=== PATIENT | female | born 1980 | race Caucasian/White ===

== ENCOUNTER 2017-04-04 13:06 | Emergency (ER) | payer SELFPAY | END 2017-04-04 13:59 | disposition left against medical advice (07) | LOC: ED 13:53 | DX: R42 Dizziness and giddiness (principal); R11.0 Nausea; Z53.21 Procedure and treatment not carried out due to patient leaving prior to being seen by health care provider ==

== ENCOUNTER 2017-04-06 16:21 | Emergency (ER) | payer SELFPAY ==
[~2017-04-06] VITALS: Ht 157.5 cm; Wt 53.3 kg
[2017-04-06] MEDS ORDERED: SODIUM CHLORIDE 0.9% 1,000 ML IV ONE (16:33)
[2017-04-06] MEDS ORDERED: ACETAMINOPHEN 325 MG TABLET ONE (16:51)
[2017-04-06] MEDS ORDERED: ACETAMINOPHEN 325 MG TABLET PO ONE (17:00)
[2017-04-06] MEDS ORDERED: SODIUM CHLORIDE 0.9% 1,000ML IVBOLUS ONE ×2 (17:00→18:00)
[2017-04-06 17:02] LABS: HEMATOCRIT 41.6 % (34.6-47.8); WHITE BLOOD COUNT 8.2 x10^3/uL (3.4-10)
[2017-04-06 17:07] LABS: BLOOD UREA NITROGEN 11 mg/dL (7-18)
[2017-04-06] MEDS ORDERED: LORazepam 2 MG/ML, 1ML ONE (17:51)
[2017-04-06] MEDS ORDERED: SODIUM CHLORIDE FLUSH 10ML SYR IVF ONE (18:00)
[2017-04-06] MEDS ORDERED: LORazepam 2 MG/ML, 1ML IVPush ONE (18:00)
[2017-04-06 20:28] VITALS: BP 117/80
== END 2017-04-06 20:33 | disposition home or self-care (01) ==
LOC: ED 18:17
DX: S09.90XA Unspecified injury of head, initial encounter (principal); R11.10 Vomiting, unspecified; E86.0 Dehydration; N39.0 Urinary tract infection, site not specified; I10 Essential (primary) hypertension; Y04.2XXA Assault by strike against or bumped into by another person, initial encounter
CPT/HCPCS: 36415; 70450; 71020; 72125; 80048; 81001; 82040; 84703; 85025; 87077; 87086; 96361; 96374; 99285; J2060; J7030; 87147; 87186

== ENCOUNTER 2017-07-22 | Emergency (ER) | payer OTHER ==
[~2017-07-22] VITALS: Ht 157.5 cm; Wt 54.5 kg
[2017-07-22 00:12] VITALS: BP 138/83
[2017-07-22] MEDS ORDERED: ONDANSETRON 2MG/ML, 2ML IVPush ONE (00:30)
[2017-07-22] MEDS ORDERED: SODIUM CHLORIDE FLUSH 10ML SYR IVF ONE (00:30)
[2017-07-22] MEDS ORDERED: SODIUM CHLORIDE 0.9% 1,000ML IVBOLUS ONE (00:30)
[2017-07-22 00:34] LABS: BASOPHILS # (AUTO) 0.05 x10^3/uL (0-0.1); BASOPHILS % (AUTO) 1 % (0-1); EOSINOPHILS # (AUTO) 0.05 x10^3/uL (0-0.4); EOSINOPHILS % (AUTO) 1 % (1-7); LYMPHOCYTES # (AUTO) 3.42 x10^3/uL (1-3.4); LYMPHOCYTES % (AUTO) 54 % (22-44); MD NO; MEAN CORPUSCULAR HEMOGLOBIN 33.6 pg (27.0-34.8); MEAN CORPUSCULAR HGB CONC 33.6 g/dL (32.4-35.8); MEAN CORPUSCULAR VOLUME 100.2 fL (80-100); MEAN PLATELET VOLUME 6.9 fL (7.4-10.4); MONOCYTES # (AUTO) 0.57 x10^3/uL (0.2-0.8); MONOCYTES % (AUTO) 9 % (2-9); NEUTROPHILS # (AUTO) 2.31 x10^3/uL (1.8-6.8); NEUTROPHILS % (AUTO) 36 % (42-75); PLATELET COUNT 254 x10^3/uL (130-400); RED BLOOD COUNT 4.33 x10^6/uL (3.82-5.3); RED CELL DISTRIBUTION WIDTH 13.3 % (9.6-15.2)
[2017-07-22 00:45] LABS: ALANINE AMINOTRANSFERASE 72 U/L (12-78); ANION GAP 7 mmol/L (5-15); CALCIUM 8.5 mg/dL (8.5-10.1); CHLORIDE 107 mmol/L (98-107); CREATININE 0.55 mg/dL (0.55-1.02)
[2017-07-22 00:50] LABS: ALKALINE PHOSPHATASE 68 U/L (45-117); BILIRUBIN,TOTAL 0.2 mg/dL (0.2-1.0); TOTAL PROTEIN 8.4 g/dL (6.4-8.2); TROPONIN I < 0.015 ng/mL (0.000-0.045)
== END 2017-07-22 04:09 ==
LOC: ED 04:03
DX: R07.9 Chest pain, unspecified (principal); R10.84 Generalized abdominal pain; R05 Cough
CPT/HCPCS: 36415; 71046; 80053; 80307; 83690; 84484; 84703; 85025; 93005; 99285; G0479

== ENCOUNTER 2018-10-31 15:15 | Emergency (ER) | payer MEDICAID ==
[~2018-10-31] VITALS: Ht 157.5 cm; Wt 55.4 kg
--- NOTE | 2018-10-31 15:38 | NUR ---
BREAK RN: CONTACT WITH PT, 37 YR OLD FEMALE HERE WITH C/O "IT STARTED WITH A SPIDER BITE, I GOT ABX FOR IT AND THEN I GOT ANOTHER SPIDER BITE, GOT MORE ABX, DOXYCYCLINE, NOW MY HANDS ARE ALL RED, MY SKIN FEELS ALL WEIRD AND TINGLY." SEEN AT [facility] 2 WEEKS AGO FOR LEFT CALF SPIDER BITE, (RESOLVED) AFTER FINISHING 1ST ROUND OF ABX DEVELOPED A RASH TO LEFT CALF. 1 WEEK AGO DEVELOPED A SPIDER BITE TO RIGHT CALF, SEEN AT [facility]. BRIGIDA HANDS RED. RIGHT HAND SLIGHTLY SWOLLEN.
--- NOTE | 2018-10-31 15:44 | NUR ---
TERRENCE ERWIN AT BEDSIDE TO EVLUCY PT.
[2018-10-31 16:04] LABS: BASOPHILS # (AUTO) 0.03 x10^3/uL (0-0.1); BASOPHILS % (AUTO) 0 % (0-1); EOSINOPHILS # (AUTO) 0.07 x10^3/uL (0-0.4); EOSINOPHILS % (AUTO) 1 % (1-7); LYMPHOCYTES # (AUTO) 2.17 x10^3/uL (1-3.4); LYMPHOCYTES % (AUTO) 32 % (22-44); MD NO; MEAN CORPUSCULAR HEMOGLOBIN 33.9 pg (27.0-34.8); MEAN CORPUSCULAR HGB CONC 34.4 g/dL (32.4-35.8); MEAN CORPUSCULAR VOLUME 98.5 fL (80-100); MEAN PLATELET VOLUME 7.4 fL (7.4-10.4); MONOCYTES # (AUTO) 0.47 x10^3/uL (0.2-0.8); MONOCYTES % (AUTO) 7 % (2-9); NEUTROPHILS # (AUTO) 4.12 x10^3/uL (1.8-6.8); NEUTROPHILS % (AUTO) 60 % (42-75); PLATELET COUNT 254 x10^3/uL (130-400); RED BLOOD COUNT 4.09 x10^6/uL (3.82-5.3); RED CELL DISTRIBUTION WIDTH 12.6 % (9.6-15.2)
[2018-10-31 16:11] LABS: INTERNATIONAL NORMALIZED RATIO 0.97 (0.93-1.1); PROTHROMBIN TIME 10.2 Seconds (9.6-11.5)
[2018-10-31 16:13] LABS: ALBUMIN 3.9 g/dL (3.4-5.0); ANION GAP 6 mmol/L (5-15); CALCIUM 8.8 mg/dL (8.5-10.1); CHLORIDE 107 mmol/L (98-107)
--- NOTE | 2018-10-31 16:13 | NUR ---
REPORT TO TORRIE DIAZ.
[2018-10-31 16:17] LABS: ALANINE AMINOTRANSFERASE 53 U/L (12-78); ALKALINE PHOSPHATASE 80 U/L (45-117); BILIRUBIN,TOTAL 0.2 mg/dL (0.2-1.0); CREATININE 0.62 mg/dL (0.55-1.02); TOTAL PROTEIN 7.6 g/dL (6.4-8.2)
--- NOTE | 2018-10-31 16:34 | NUR ---
RYAN HOPE AT BEDSIDE FOR EVAL AT THIS TIME. PT CURRENTLY RESTING ON GURNEY. NAD NOTED. SKIN WARM AND DRY. RESP EVEN AND UNLABORED. CALL LIGHT WITHIN REACH. WILL CONT TO MONITOR PT.
[2018-10-31] MEDS ORDERED: FAMOTIDINE 20 MG TABLET ONE (16:59)
[2018-10-31] MEDS ORDERED: DIPHENHYDRAMINE 25 MG CAPSULE ONE (17:00)
[2018-10-31] MEDS ORDERED: DIPHENHYDRAMINE 25 MG CAPSULE PO ONE (17:00)
[2018-10-31] MEDS ORDERED: FAMOTIDINE 20 MG TABLET PO ONE (17:00)
[2018-10-31 17:03] VITALS: BP 114/73
== END 2018-10-31 17:19 | disposition home or self-care (01) ==
LOC: ED 16:30
DX: L55.0 Sunburn of first degree (principal); I10 Essential (primary) hypertension; Z88.1 Allergy status to other antibiotic agents
CPT/HCPCS: 36415; 80053; 85025; 85610; 99284; J7512; Q0163

== ENCOUNTER 2018-12-18 17:48 | Emergency (ER) | payer MEDICAID, OTHER ==
[~2018-12-18] VITALS: Ht 157.5 cm; Wt 54.2 kg
[2018-12-18 18:00] VITALS: BP 129/86
== END 2018-12-18 19:03 | disposition home or self-care (01) ==
LOC: ED 18:52
DX: S80.11XA Contusion of right lower leg, initial encounter (principal); I10 Essential (primary) hypertension; F17.200 Nicotine dependence, unspecified, uncomplicated; X58.XXXA Exposure to other specified factors, initial encounter; Y93.89 Activity, other specified; Y92.89 Other specified places as the place of occurrence of the external cause; Y99.8 Other external cause status
CPT/HCPCS: 99284